=== PATIENT | male | born 2000 | race African-American/Black ===

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

== ENCOUNTER 2020-07-21 14:36 | Observation (INO) | payer OTHER, BC ==
[2020-07-21] MEDS ORDERED: DIPH,PERTUS(ACELL)TETVAC-LF 0.5 ML VIAL IM ONE (15:00)
[2020-07-21] MEDS ORDERED: HYDROmorphone 0.5 MG/0.5 ML SYRINGE IM STA (15:00)
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
[2020-07-21] MEDS ORDERED: HYDROmorphone 0.5 MG/0.5 ML SYRINGE IVP STA (15:56)
[2020-07-21] MEDS ORDERED: NALOXONE 0.4 MG/ML 1 ML VIAL IV PRN ×2 (16:19→23:13)
[2020-07-21 16:23] LABS: Basophils % (A) 0 %; Eosinophils # (A) 0.1 k/uL (0-0.7); Eosinophils % (A) 1 %; HCT 39.8 % (39.0-53.0); HGB 13.4 gm/dL (13.0-17.5); Lymphocytes # (A) 0.8 k/uL (1.0-4.8); Lymphocytes % (A) 5 %; MCH 29.9 pg (25.0-35.0); MCHC 33.7 g/dL (31.0-37.0); MCV 88.9 fL (80.0-100.0); Mean Platelet Volume 7.7; Monocytes # (A) 0.8 k/uL (0-1.0); Monocytes % (A) 5 %; Neutrophils # (A) 14.1 k/uL (1.3-7.7); Neutrophils % (A) 89 %; Platelet Count 224 k/uL (150-450); RBC 4.48 m/uL (4.30-5.90); WBC 15.9 k/uL (4.0-11.0)
[2020-07-21 16:36] LABS: ALT 14 U/L (4-49); AST 27 U/L (17-59); African American GFR (CKD) >90 (>60 ml/min/1.73 sqM); Albumin 4.9 g/dL (3.5-5.0); Alkaline Phosphatase 54 U/L (38-126); Anion Gap 10 mmol/L; Blood Urea Nitrogen 14 mg/dL (9-20); Calcium 9.5 mg/dL (8.4-10.2); Carbon Dioxide 20 mmol/L (22-30); Chloride 107 mmol/L (98-107); Glucose 96 mg/dL (74-99); Non-African American GFR(CKD) >90 (>60 ml/min/1.73 sqM); Potassium 3.8 mmol/L (3.5-5.1); Sodium 137 mmol/L (137-145); Total Protein 7.3 g/dL (6.3-8.2)
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
[2020-07-21] MEDS ORDERED: HYDROmorphone 0.5 MG/0.5 ML SYRINGE IVP PRN (19:13)
[2020-07-21] MEDS ORDERED: ONDANSETRON 4 MG/2 ML VIAL IVP PRN (19:14)
[2020-07-21] MEDS ORDERED: SUCCINYLCHOLINE CHLORIDE 100 MG/5 ML SYR IV ONE (20:58)
[2020-07-21] MEDS ORDERED: LIDOCAINE 1% INJ 10MG/ML (20 ML MDV) ONE (20:58)
[2020-07-21] MEDS ORDERED: ROCURONIUM BROMIDE 10 MG/ML 5 ML VIAL IV ONE (20:58)
[2020-07-21] MEDS ORDERED: fentaNYL (PF) 50 MCG/ML 2 ML AMP ONE (20:58)
[2020-07-21] MEDS ORDERED: PROPOFOL 10 MG/ML 20 ML VIAL IV ONE (20:58)
[2020-07-21] MEDS ORDERED: MIDAZOLAM 2 MG/2 ML VIAL ONE (20:58)
[2020-07-21] MEDS ORDERED: ONDANSETRON 4 MG/2 ML VIAL ONE (20:58)
[2020-07-21] MEDS ORDERED: ceFAZolin 1,000 MG VIAL ONE (20:58)
[2020-07-21] MEDS ORDERED: IV FLUID CONTINUATION 1,000 ML IV ONE (21:01)
[2020-07-21] MEDS ORDERED: SODIUM CHLORIDE 0.9% 50 ML with ceFAZolin 2,000 MG IV ONE ×2 (21:12)
[2020-07-21] MEDS ORDERED: LIDOCAINE 1%-EPI 1:100,000 20 ML VIAL SQ ONE (22:20)
[2020-07-21] MEDS ORDERED: LACTATED RINGERS 1,000 ML IV ONE (22:31)
[2020-07-21] MEDS ORDERED: NEOMYCIN-BACITRACIN-POLY OINT 1 APPLIC/EACH PACKET TOPICAL ONE (22:41)
[2020-07-21] MEDS ORDERED: MEPERIDINE 50 MG/ML SYRINGE IVP ONE (22:55)
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
[2020-07-21] MEDS ORDERED: HYDROcodone/APAP 5-325MG 1 EACH TAB PO PRN (23:19)
[2020-07-22] MEDS: HYDROcodone/APAP 5-325MG 1 EACH TAB PO PRN ×4 (02:58→14:32)
[2020-07-22] MEDS: HYDROmorphone 0.5 MG/0.5 ML SYRINGE IVP PRN ×2 (03:12→09:45)
[2020-07-22 07:35] VITALS: RESP 16
--- NOTE | 2020-07-22 09:03 | XR ---
EXAMINATION TYPE: XR hand complete LT DATE OF EXAM: 07/22/2020 CLINICAL HISTORY: Fracture status post splint application TECHNIQUE: Frontal, lateral and oblique images of the left hand are obtained. COMPARISON: 07/21/2010 left hand radiograph FINDINGS: Interval splinting of the left hand, with redemonstrated oblique spiral fracture of the fo urth metacarpal diaphysis with unchanged minimal displacement versus 07/21/2020 comparison. Overlying splinting material obscures fine osseous detail. IMPRESSION: Unchanged appearance of minimally displaced spiral fracture of the fourth metacarpal diap hysis status post splinting, versus 07/21/2020 comparison.
[2020-07-22 13:45] VITALS: BP 124/66; PULSE 66; TEMP 99
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
== END 2020-07-22 15:15 | disposition home or self-care (01) ==
LOC: EC 14:36 → 1SOBS 16:09
PROVIDERS: ADMIT Orthopaedic Surgery; ATTEND Orthopaedic Surgery
DX: S86.922A Laceration of unspecified muscle(s) and tendon(s) at lower leg level, left leg, initial encounter (principal); S62.325A Displaced fracture of shaft of fourth metacarpal bone, left hand, initial encounter for closed fracture; V29.9XXA Motorcycle rider (driver) (passenger) injured in unspecified traffic accident, initial encounter; R20.0 Anesthesia of skin; Z23 Encounter for immunization
CPT/HCPCS: 29125; 90471; 99285; 36415; 97162; 86900; 86901; 80053; 85025; 86850; 72170; 73130 ×2; 73590; 71045; 90715; 14020; G0378 ×2; J2250; J2175; J0690 ×3; J2405; J2001; J3010; J0330; J2704; J1170 ×2

== ENCOUNTER 2020-08-04 12:29 | Emergency (ER) | payer BC, OTHER ==
--- NOTE | 2020-08-04 14:15 | US ---
EXAMINATION TYPE: US venous doppler duplex LE LT DATE OF EXAM: 08/04/2020 1:53 PM COMPARISON: NONE CLINICAL HISTORY: r/o DVT, recent trauma. SIDE PERFORMED: Left TECHNIQUE: The lower extremity deep venous system is examined utilizing real time linear array sonog daniel with graded compression, doppler sonography and color-flow sonography. VESSELS IMAGED: External Iliac Vein (EIV) Common Femoral Vein Deep Femoral Vein Greater Saphenous Vein * Femoral Vein Popliteal Vein Small Saphenous Vein * Proximal Calf Veins (* superficial vessels) Left Leg: Negative for DVT IMPRESSION: Grayscale, color doppler, spectral doppler imaging performed of the deep veins of the lo wer extremities. There is normal flow, compressibility, vascular waveforms.
--- NOTE | 2020-08-04 14:29 | XR ---
EXAMINATION TYPE: XR hand complete LT DATE OF EXAM: 08/04/2020 COMPARISON: 07/22/2020 HISTORY: Pain TECHNIQUE: Three views are submitted. FINDINGS: Exam limited by overlying casting material obscuring bony detail. There is a comminuted oblique fract ure involving the fourth metacarpal with displacement which is similar in appearance relative to the prior exam. Remaining osseous structures intact. IMPRESSION: 1. Mildly displaced fracture fourth metacarpal unchanged from prior exam.
--- NOTE | 2020-08-04 14:53 | XR ---
EXAMINATION TYPE: XR tibia fibula LT DATE OF EXAM: 08/04/2020 COMPARISON: NONE HISTORY: Pain TECHNIQUE: Two views are submitted. FINDINGS: The osseous structures are intact. The joint spaces are preserved. IMPRESSION: 1. No acute osseous abnormality.
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
[2020-08-04] MEDS ORDERED: ACET/COD 300 MG/30 MG STARTER PACK 6 TAB BTL PO STA (15:02)
[2020-08-04 15:09] VITALS: BP 115/54; PULSE 88; RESP 16; TEMP 98
== END 2020-08-04 15:12 | disposition home or self-care (01) ==
LOC: EC 12:29
DX: G89.18 Other acute postprocedural pain (principal); S62.91XD Unspecified fracture of right hand, subsequent encounter for fracture with routine healing; Z98.890 Other specified postprocedural states; V89.2XXD Person injured in unspecified motor-vehicle accident, traffic, subsequent encounter
CPT/HCPCS: 99284

== ENCOUNTER 2020-12-31 14:49 | Emergency (ER) | payer BC ==
[2020-12-31 14:54] VITALS: RESP 18; TEMP 98.3
--- NOTE | 2020-12-31 15:10 | ED ---
General Adult HPI - General Chief complaint: Psychiatric Symptoms Stated complaint: Mental Health Time Seen by Provider: 12/31/20 14:58 Source: patient, RN notes reviewed, old records reviewed Mode of arrival: ambulatory Limitations: no limitations - History of Present Illness Initial comments: 20-year-old male presenting for psychiatric evaluation, suicidal ideation and depression. Patient is accompanied by his mother who states he's had some issues for the last 6 months or so. No suicide attempt. No specific plan. He's been stressed out and very anxious. He denies physical complaints, no past medical history. - Related Data Home Medications Medication Instructions Recorded Confirmed No Known Home Medications 12/31/20 12/31/20 Allergies Allergy/AdvReac Type Severity Reaction Status Date / Time No Known Allergies Allergy Verified 12/31/20 15:31 Review of Systems ROS Statement: Those systems with pertinent positive or pertinent negative responses have been documented in the HPI. ROS Other: All systems not noted in ROS Statement are negative. Past Medical History Past Medical History: No Reported History History of Any Multi-Drug Resistant Organisms: None Reported Past Surgical History: Orthopedic Surgery Additional Past Surgical History / Comment(s): Recent ortho surgery at [facility] on left leg. Additional Past Anesthesia/Blood Transfusion Reaction / Comment(s): brother has post-op nausea vomiting Past Psychological History: No Psychological Hx Reported Smoking Status: Never smoker Past Alcohol Use History: None Reported Past Drug Use History: Marijuana General Exam Limitations: no limitations General appearance: alert, in no apparent distress Head exam: Present: atraumatic, normocephalic Eye exam: Present: normal appearance, PERRL ENT exam: Present: normal exam Neck exam: Present: normal inspection. Absent: tenderness, meningismus Respiratory exam: Present: normal lung sounds bilaterally. Absent: respiratory distress, wheezes Cardiovascular Exam: Present: regular rate, normal rhythm GI/Abdominal exam: Present: soft. Absent: distended, tenderness, guarding Extremities exam: Present: normal inspection, normal capillary refill. Absent: pedal edema Neurological exam: Present: alert, oriented X3, CN II-XII intact. Absent: motor sensory deficit Psychiatric exam: Present: depressed, flat affect, suicidal ideation Skin exam: Present: warm, dry, intact. Absent: cyanosis, diaphoretic Course Vital Signs 12/31/20 14:50 Temperature 98.3 F Pulse Rate 64 Respiratory 18 Rate Blood Pressure 101/62 O2 Sat by Pulse 100 Oximetry - Reevaluation(s) Reevaluation #1: 12/31/20 15:10 Patient medically cleared for EPS evaluation Medical Decision Making - Medical Decision Making Patient had been evaluated by EPS, felt to be safe for discharge with outpatient referrals. I did reevaluate the patient is feeling much better. He is able to sign a safety plan and will arrange for outpatient follow-up. Mother is in the room and is agreeable with this plan. Disposition Clinical Impression: Depression Disposition: HOME SELF-CARE Condition: Fair Instructions (If sedation given, give patient instructions): Depression (ED) Additional Instructions: Please follow up with community mental health, please return with worsening or changing symptoms. Is patient prescribed a controlled substance at d/c from ED?: No Referrals: None,Stated [Primary Care Provider] - 1-2 days Artem Hogan MD [STAFF PHYSICIAN] - 1-2 days Time of Disposition: 17:14
[2020-12-31 17:19] VITALS: BP 122/86; PULSE 84
== END 2020-12-31 17:19 | disposition home or self-care (01) ==
LOC: EC 14:49
DX: F32.9 Major depressive disorder, single episode, unspecified (principal)
CPT/HCPCS: 82075; 99285

== ENCOUNTER 2021-01-16 22:36 | Emergency (ER) | payer BC ==
[2021-01-16 22:54] VITALS: BP 115/64; PULSE 84; TEMP 98.3
[2021-01-16] MEDS ORDERED: IBUPROFEN 600 MG TAB PO STA (23:39)
[2021-01-16] MEDS ORDERED: ACETAMINOPHEN TAB 325 MG TAB PO STA (23:39)
[2021-01-17 00:11] VITALS: RESP 16
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
[2021-01-17] MEDS ORDERED: AMOXIC-POT CLAV 875MG STARTER PACK 2 TAB BTL PO STA (00:52)
== END 2021-01-17 01:11 | disposition home or self-care (01) ==
LOC: EC 22:36
DX: S02.2XXA Fracture of nasal bones, initial encounter for closed fracture (principal); T74.11XA Adult physical abuse, confirmed, initial encounter; Y04.0XXA Assault by unarmed brawl or fight, initial encounter; Y92.009 Unspecified place in unspecified non-institutional (private) residence as the place of occurrence of the external cause; Y07.9 Unspecified perpetrator of maltreatment and neglect
CPT/HCPCS: 70486; 99284

== ENCOUNTER 2021-08-17 19:30 | Emergency (ER) | payer BC, OTHER ==
[2021-08-17 19:34] VITALS: BP 105/64; PULSE 89; RESP 18; TEMP 98.5
[2021-08-17] MEDS ORDERED: ACETAMINOPHEN TAB 325 MG TAB PO STA (20:02)
--- NOTE | 2021-08-17 20:11 | ED ---
Fall HPI - General Chief Complaint: Fall Stated Complaint: Fall-head injury Time Seen by Provider: 08/17/21 19:41 Source: patient Mode of arrival: ambulatory - History of Present Illness Initial Comments: 21-year-old male presents emergency Department with a chief complaint of a fall and head injury. Patient reports he fell down 4 stairs and injured his head on the way down. Patient reports he noticed some blood in the parietal region of the head. States there were no loss of consciousness blood thinners. However, he states there is pain in the injury region. He also reports some lightheadedness but denies any dizziness. Denies any nausea or vomiting visual changes onset of weakness or paresthesias. Tetanus is up-to-date. - Related Data Previous Rx's Medication Instructions Recorded Amoxic-Pot Clav 875-125Mg 1 tab PO Q12HR #14 tablet 01/17/21 [Augmentin 875-125] Ibuprofen [Motrin] 600 mg PO Q8HR PRN #30 tab 01/17/21 Allergies Allergy/AdvReac Type Severity Reaction Status Date / Time No Known Allergies Allergy Verified 08/17/21 19:34 Review of Systems ROS Statement: Those systems with pertinent positive or pertinent negative responses have been documented in the HPI. ROS Other: All systems not noted in ROS Statement are negative. Past Medical History Past Medical History: No Reported History History of Any Multi-Drug Resistant Organisms: None Reported Past Surgical History: Orthopedic Surgery Additional Past Surgical History / Comment(s): Recent ortho surgery at [facility] on left leg. Additional Past Anesthesia/Blood Transfusion Reaction / Comment(s): brother has post-op nausea vomiting Past Psychological History: No Psychological Hx Reported Smoking Status: Never smoker Past Alcohol Use History: None Reported Past Drug Use History: Marijuana General Exam Limitations: no limitations General appearance: alert, in no apparent distress Head exam: Present: atraumatic, normocephalic. Absent: normal inspection (Small laceration, superficial on the parietal region of the head), other (Negative Alva sign, raccoon eyes, hemotympanum.) Eye exam: Present: normal appearance, PERRL, EOMI Pupils: Present: normal accommodation ENT exam: Present: normal exam, normal oropharynx, mucous membranes moist Neck exam: Present: normal inspection, full ROM. Absent: tenderness Respiratory exam: Present: normal lung sounds bilaterally. Absent: respiratory distress, wheezes, rales, rhonchi, stridor Cardiovascular Exam: Present: regular rate, normal rhythm, normal heart sounds. Absent: systolic murmur GI/Abdominal exam: Present: soft. Absent: rebound Extremities exam: Present: normal inspection, full ROM, normal capillary refill, other (Palpable DP and PT bilaterally) Back exam: Present: normal inspection, full ROM. Absent: tenderness Neurological exam: Present: alert, oriented X3, CN II-XII intact, normal gait Psychiatric exam: Present: normal affect, normal mood Skin exam: Present: warm, dry, intact, normal color Course Vital Signs 08/17/21 19:31 Temperature 98.5 F Pulse Rate 89 Respiratory 18 Rate Blood Pressure 105/64 O2 Sat by Pulse 98 Oximetry Medical Decision Making - Medical Decision Making 21-year-old male presents emergency Department with a chief complaint of a fall and head injury. On physical examination, small laceration that was thoroughly irrigated and repaired with one staple. Patient had a procedure well. Patient was given analgesia for the head injury. CT of the brain and C-spine is unremarkable. Patient advised to return for suture removal in 10 days. Strict return parameters were thoroughly discussed with patient is understanding and agreeable. Disposition Clinical Impression: Fall, Hand laceration, Head injury, Concussion Disposition: HOME SELF-CARE Condition: Stable Instructions (If sedation given, give patient instructions): Laceration (DC), Staple Care (ED) Additional Instructions: Please return to the emergency room in 10-14 days to have sstaples removed. Please watch for any signs of infection which may include increased pain, swelling, redness, fever or chills. Please return to emergency room for any signs of infection do occur. Please use clean soap and water over the area to prevent scabbing over your stitches. Please leave wound covered for the first 24-48 hours and then leave wound open to air. Please return to the emergency room for any other concerns. Is patient prescribed a controlled substance at d/c from ED?: No Referrals: None,Stated [Primary Care Provider] - 1-2 days Time of Disposition: 21:13
--- NOTE | 2021-08-17 21:00 | CT ---
EXAMINATION TYPE: CT brain behzad jacobsen DATE OF EXAM: 08/17/2021 COMPARISON: None HISTORY: fell down stairs today CT DLP: 1393.6 mGycm Automated exposure control for dose reduction was used. TECHNIQUE: CT scan of the head and cervical spine are performed without contrast. FINDINGS: There is no acute intracranial hemorrhage, mass effect, or midline shift identified. The ventricles and sulci are within normal limits in size. The globes are intact and the visualized sin uses are clear. Mucosal thickening of the floor of the left maxillary sinus. Cervical spine is visualized in its entirety from C1 through upper thoracic levels and demonstrates s atisfactory alignment without evidence of acute fracture or dislocation. Prevertebral soft tissue ap pears within normal limits. The C1-C2 articulation is unremarkable. IMPRESSION: 1. There is no acute fracture or dislocation evident in the cervical spine. 2. No acute intracranial hemorrhage, mass effect, or midline shift is seen.
[2021-08-17] MEDS ORDERED: IBUPROFEN 600 MG TAB PO STA (21:09)
== END 2021-08-17 21:24 | disposition home or self-care (01) ==
LOC: EC 19:30
DX: S06.0X0A Concussion without loss of consciousness, initial encounter (principal); S01.91XA Laceration without foreign body of unspecified part of head, initial encounter; W10.8XXA Fall (on) (from) other stairs and steps, initial encounter
CPT/HCPCS: 12001; 70450; 72125; 99284

== ENCOUNTER 2021-08-31 11:17 | Emergency (ER) | payer BC, OTHER ==
[2021-08-31] MEDS ORDERED: ONDANSETRON 4 MG/2 ML VIAL IVP STA (11:45)
[2021-08-31] MEDS ORDERED: SODIUM CHLORIDE 0.9% 1,000 ML IV STA (11:45)
[2021-08-31 12:07] LABS: Basophils % (A) 1 %; Eosinophils % (A) 1 %; HCT 42.8 % (39.0-53.0); HGB 14.5 gm/dL (13.0-17.5); Lymphocytes % (A) 31 %; MCH 30.8 pg (25.0-35.0); MCHC 33.9 g/dL (31.0-37.0); Monocytes # (A) 0.2 k/uL (0-1.0); Monocytes % (A) 7 %; Neutrophils # (A) 1.9 k/uL (1.3-7.7); Neutrophils % (A) 59 %; Platelet Count 165 k/uL (150-450); RBC 4.71 m/uL (4.30-5.90); RDW 11.9 % (11.5-15.5); WBC 3.2 k/uL (3.8-10.6)
[2021-08-31 12:18] LABS: ALT 19 U/L (4-49); AST 25 U/L (17-59); African American GFR (CKD) >90 (>60 ml/min/1.73 sqM); Albumin 4.9 g/dL (3.5-5.0); Alkaline Phosphatase 60 U/L (38-126); Anion Gap 10 mmol/L; Blood Urea Nitrogen 14 mg/dL (9-20); Calcium 9.6 mg/dL (8.4-10.2); Carbon Dioxide 28 mmol/L (22-30); Chloride 104 mmol/L (98-107); Glucose 113 mg/dL (74-99); Non-African American GFR(CKD) >90 (>60 ml/min/1.73 sqM); Potassium 3.7 mmol/L (3.5-5.1); Sodium 142 mmol/L (137-145); Total Bilirubin 0.6 mg/dL (0.2-1.3); Total Protein 7.8 g/dL (6.3-8.2)
--- NOTE | 2021-08-31 12:35 | ED ---
Nausea/Vomiting/Diarrhea HPI - General Chief complaint: Nausea/Vomiting/Diarrhea Stated complaint: nausea/vomithing/dehydrated Time Seen by Provider: 08/31/21 11:39 Source: patient, RN notes reviewed Mode of arrival: ambulatory Limitations: no limitations - History of Present Illness Initial comments: Patient is a 21-year-old male presenting to emergency Department with complaints of nausea, vomiting, abdominal cramping over the past 3-4 days. He also started having body aches, chills, mild cough about a week ago. His girlfriend recently tested positive for covid and he is concerned he has the same. States he went to [facility] earlier today, he sat there for hours without any treatment or testing. Patient then left and came here. He states he continues to feel nauseous, is not able to eat or drink anything in the past 2-3 days. Denies any lightheadedness or dizziness, mild fevers a few days ago but none today. He did not take any Tylenol or Motrin at today. Denies history of asthma, is a nonsmoker. He has no further complaints at this time. Patient vitals are stable upon arrival. - Related Data Home Medications Medication Instructions Recorded Confirmed No Known Home Medications 08/31/21 08/31/21 Allergies Allergy/AdvReac Type Severity Reaction Status Date / Time No Known Allergies Allergy Verified 08/31/21 12:18 Review of Systems ROS Statement: Those systems with pertinent positive or pertinent negative responses have been documented in the HPI. ROS Other: All systems not noted in ROS Statement are negative. Past Medical History Past Medical History: No Reported History History of Any Multi-Drug Resistant Organisms: None Reported Past Surgical History: Orthopedic Surgery Additional Past Surgical History / Comment(s): Recent ortho surgery at [facility] on left leg. Additional Past Anesthesia/Blood Transfusion Reaction / Comment(s): brother has post-op nausea vomiting Past Psychological History: No Psychological Hx Reported Smoking Status: Never smoker Past Alcohol Use History: None Reported Past Drug Use History: Marijuana General Exam - General Exam Comments Initial Comments: GENERAL: Patient is well-developed and well-nourished. Patient is nontoxic and in no acute distress. HEAD: Atraumatic, normocephalic. EYES: Pupils equal round and reactive to light, extraocular movements intact, sclera anicteric, conjunctiva are normal. Eyelids were unremarkable. ENT: TMs normal, nares patent, oropharynx clear without exudates. Dry mucous membranes. NECK: Normal range of motion, supple without lymphadenopathy or JVD. LUNGS: Unlabored respirations. Breath sounds clear to auscultation bilaterally and equal. No wheezes rales or rhonchi. HEART: Regular rate and rhythm without murmurs, rubs or gallops. ABDOMEN: Soft, nontender, normoactive bowel sounds. No guarding, no rebound. No masses appreciated. : Deferred MUSCULOSKELETAL: Normal extremities with adequate strength and normal range of motion, no pitting or edema. No clubbing or cyanosis. NEUROLOGICAL: Patient is alert and oriented x 3. SKIN: Warm, Dry, normal turgor, no rashes or lesions noted. Limitations: no limitations Course Vital Signs 08/31/21 08/31/21 11:30 13:37 Temperature 98.5 F 98.2 F Pulse Rate 83 Respiratory 19 Rate Blood Pressure 108/76 O2 Sat by Pulse 97 Oximetry Medical Decision Making - Medical Decision Making Patient is a 21-year-old male here for nausea, vomiting, abdominal cramping and body aches that started about 5 days ago. Symptoms worsened over the past couple days. His girlfriend tested positive for covid, his test is also positive today. His labs are unremarkable. He does meet for monoclonal antibodies, does agree to this. [facility]. He is stable for discharge. Recommended Tylenol or Motrin for any fevers or body aches. He is agreeable to this. Return parameters were discussed with him and he verbalized understanding. - Lab Data Result diagrams: 08/31/21 11:57 08/31/21 11:57 Lab Results 08/31/21 08/31/21 08/31/21 Range/Units 11:57 11:57 11:57 WBC 3.2 L (3.8-10.6) k/uL RBC 4.71 (4.30-5.90) m/uL Hgb 14.5 (13.0-17.5) gm/dL Hct 42.8 (39.0-53.0) % MCV 91.0 (80.0-100.0) fL MCH 30.8 (25.0-35.0) pg MCHC 33.9 (31.0-37.0) g/dL RDW 11.9 (11.5-15.5) % Plt Count 165 (150-450) k/uL MPV 8.0 Neutrophils % 59 % Lymphocytes % 31 % Monocytes % 7 % Eosinophils % 1 % Basophils % 1 % Neutrophils # 1.9 (1.3-7.7) k/uL Lymphocytes # 1.0 (1.0-4.8) k/uL Monocytes # 0.2 (0-1.0) k/uL Eosinophils # 0.0 (0-0.7) k/uL Basophils # 0.0 (0-0.2) k/uL Sodium 142 (137-145) mmol/L Potassium 3.7 (3.5-5.1) mmol/L Chloride 104 (98-107) mmol/L Carbon Dioxide 28 (22-30) mmol/L Anion Gap 10 mmol/L BUN 14 (9-20) mg/dL Creatinine 0.85 (0.66-1.25) mg/dL Est GFR (CKD-EPI)AfAm >90 (>60 ml/min/1.73 sqM) Est GFR (CKD-EPI)NonAf >90 (>60 ml/min/1.73 sqM) Glucose 113 H (74-99) mg/dL Calcium 9.6 (8.4-10.2) mg/dL Total Bilirubin 0.6 (0.2-1.3) mg/dL AST 25 (17-59) U/L ALT 19 (4-49) U/L Alkaline Phosphatase 60 (38-126) U/L Total Protein 7.8 (6.3-8.2) g/dL Albumin 4.9 (3.5-5.0) g/dL Coronavirus (PCR) Detected A (Not Detectd) Disposition Clinical Impression: COVID-19, Nausea & vomiting Disposition: HOME SELF-CARE Condition: Stable Instructions (If sedation given, give patient instructions): Coronavirus Disease 2019 (COVID-19) Additional Instructions: Please return to the Emergency Department if symptoms worsen or any other concerns. May take Zofran every 8 hours for any additional nausea or vomiting. Continue to increased your fluid intake. Is patient prescribed a controlled substance at d/c from ED?: No Referrals: None,Stated [Primary Care Provider] - 1-2 days Time of Disposition: 13:57
[2021-08-31] MEDS ORDERED: SODIUM CHLORIDE 0.9% 50 ML IVPB ONE (12:45)
[2021-08-31] MEDS ORDERED: CASIRIVIMAB/IMDEVIMAB (EUA) 1,200 MG in SODIUM CHLORIDE 0.9% 100 ML IVPB ONE (13:00)
[2021-08-31 13:39] VITALS: TEMP 98.2
[2021-08-31] MEDS ORDERED: ONDANSETRON 4 MG ODT STARTER PACK 2 TAB BTL PO STA (13:55)
[2021-08-31 14:33] VITALS: BP 102/64; PULSE 62; RESP 20
== END 2021-08-31 14:33 | disposition home or self-care (01) ==
LOC: EC 11:17
DX: U07.1 COVID-19 (principal); R10.9 Unspecified abdominal pain
CPT/HCPCS: 36415; 80053; 85025; 87635; 99284; 96365; 96375; 96361; J2405; S0119; Q0243

== ENCOUNTER 2023-05-31 23:07 | Emergency (ER) | payer BC, OTHER ==
[2023-05-31 23:13] VITALS: BP 121/64; PULSE 99; RESP 16; TEMP 98.1
[2023-05-31] MEDS ORDERED: DOXYCYCLINE 100 MG CAP PO STA (23:26)
--- NOTE | 2023-05-31 23:27 | ED ---
General Adult HPI - General Chief complaint: Animal Bite Stated complaint: bug bite Time Seen by Provider: 05/31/23 23:16 Source: patient Mode of arrival: ambulatory Limitations: no limitations - History of Present Illness Initial comments: 23-year-old male presenting for evaluation of tick bite. Patient states that he found a tick on the left side of his abdomen this evening. Patient assumes it has been there for less than 24 hours as he did not see it there when showering yesterday. He removed it prior to arrival but is concerned that they had still remains in the skin. He is otherwise asymptomatic. - Related Data Home Medications Medication Instructions Recorded Confirmed No Known Home Medications 08/31/21 08/31/21 Allergies Allergy/AdvReac Type Severity Reaction Status Date / Time No Known Allergies Allergy Verified 08/31/21 12:18 Review of Systems ROS Statement: Those systems with pertinent positive or pertinent negative responses have been documented in the HPI. ROS Other: All systems not noted in ROS Statement are negative. Past Medical History Past Medical History: No Reported History History of Any Multi-Drug Resistant Organisms: None Reported Past Surgical History: Orthopedic Surgery Additional Past Surgical History / Comment(s): Recent ortho surgery at [facility] on left leg. Additional Past Anesthesia/Blood Transfusion Reaction / Comment(s): brother has post-op nausea vomiting Past Psychological History: No Psychological Hx Reported Smoking Status: Never smoker Past Alcohol Use History: None Reported Past Drug Use History: Marijuana General Exam Limitations: no limitations General appearance: alert, in no apparent distress Head exam: Present: atraumatic, normocephalic, normal inspection Eye exam: Present: normal appearance Neck exam: Present: normal inspection Extremities exam: Present: normal inspection, full ROM Neurological exam: Present: alert, oriented X3, CN II-XII intact Psychiatric exam: Present: normal affect, normal mood Skin exam: Present: warm, dry, intact, normal color. Absent: rash Course Vital Signs 05/31/23 23:10 Temperature 98.1 F Pulse Rate 99 Respiratory 16 Rate Blood Pressure 121/64 O2 Sat by Pulse 98 Oximetry Medical Decision Making - Medical Decision Making Was pt. sent in by a medical professional or institution (, PA, [employer], urgent care, hospital, or shelter...) When possible be specific @ -No Did you speak to anyone other than the patient for history (EMS, parent, family, police, friend...)? What history was obtained from this source @ -No Did you review nursing and triage notes (agree or disagree)? Why? @ -I reviewed and agree with nursing and triage notes Were old charts reviewed (outside hosp., previous admission, EMS record, old EKG, old radiological studies, urgent care reports/EKG's, shelter records)? Report findings @ -No old charts were reviewed Differential Diagnosis (chest pain, altered mental status, abdominal pain women, abdominal pain men, vaginal bleeding, weakness, fever, dyspnea, syncope, headache, dizziness, GI bleed, back pain, seizure, CVA, palpatations, mental health, musculoskeletal)? @ -Differential includes tick bite, cellulitis, abscess, cyst, not an all inclusive list EKG interpreted by me (3pts min.). @ -As above X-rays interpreted by me (1pt min.). @ -None done CT interpreted by me (1pt min.). @ -None done U/S interpreted by me (1pt. min.). @ -None done What testing was considered but not performed or refused? (CT, X-rays, U/S, labs)? Why? @ -None What meds were considered but not given or refused? Why? @ -None Did you discuss the management of the patient with other professionals (professionals i.e. , PA, [employer] BUILDER, lab, RT, psych nurse, clinical social work therapist, contract clerk automobile, teacher, training officer, piano case maker)? Give summary @ -No Was smoking cessation discussed for >3mins.? @ -No Was critical care preformed (if so, how long)? @ -No Were there social determinants of health that impacted care today? How? (Homelessness, low income, unemployed, alcoholism, drug addiction, transportation, low edu. Level, literacy, decrease access to med. care, assisted, rehab)? @ -No Was there de-escalation of care discussed even if they declined (Discuss DNR or withdrawal of care, Hospice)? DNR status @ -No What co-morbidities impacted this encounter? (DM, HTN, Smoking, COPD, CAD, Cancer, CVA, ARF, Chemo, Hep., AIDS, mental health diagnosis, sleep apnea, morbid obesity)? @ -None Was patient admitted / discharged? Hospital course, mention meds given and route, prescriptions, significant lab abnormalities, going to OR and other pertinent info. @ -23-year-old male presenting with tick bite that occurred today. Patient assumes that the tick has been there for less than 24 hours. Tick removed prior to arrival, he is worried head is still stuck within the skin. On examination I see no evidence of tick Remaining. Patient is given one time dose of doxycycline here in the ER and educated on signs of Lyme disease. Follow-up with PCP. Report back to ER with any new or worsening symptoms. Discussed return parameters and answered all questions. Patient conveyed verbal understanding and agreed to the plan. I discussed this case in detail with my attending Dr. New Undiagnosed new problem with uncertain prognosis? @ -No Drug Therapy requiring intensive monitoring for toxicity (Heparin, Nitro, Insulin, Cardizem)? @ -No Were any procedures done? @ -No Diagnosis/symptom? @ -Tick bite Acute, or Chronic, or Acute on Chronic? @ -Acute Uncomplicated (without systemic symptoms) or Complicated (systemic symptoms)? @ -Uncomplicated Side effects of treatment? @ -No Exacerbation, Progression, or Severe Exacerbation? @ -No Poses a threat to life or bodily function? How? (Chest pain, USA, ID, pneumonia, PE, COPD, DKA, ARF, appy, cholecystitis, CVA, Diverticulitis, Homicidal, Suicidal, threat to staff... and all critical care pts) @ -No Disposition Clinical Impression: Tick bite Disposition: HOME SELF-CARE Condition: Good Instructions (If sedation given, give patient instructions): Lyme Disease (ED), Tick Bite (ED) Additional Instructions: Follow-up with PCP. Report back to ER for any new or worsening symptoms. Is patient prescribed a controlled substance at d/c from ED?: No Referrals: Haleigh Antonio MD [Primary Care Provider] - 1-2 days Time of Disposition: 23:27
== END 2023-05-31 23:38 | disposition home or self-care (01) ==
LOC: EC 23:07
DX: R23.8 Other skin changes (principal); F12.90 Cannabis use, unspecified, uncomplicated; W57.XXXA Bitten or stung by nonvenomous insect and other nonvenomous arthropods, initial encounter
CPT/HCPCS: 99283

== ENCOUNTER 2024-11-14 16:56 | Emergency (ER) | payer OTHER ==
--- NOTE | 2024-11-14 17:32 | ED ---
ENT HPI - General Chief complaint: Dental/Oral Stated complaint: mouth abscess Time Seen by Provider: 11/14/24 17:13 Source: patient, RN notes reviewed Mode of arrival: ambulatory Limitations: no limitations - History of Present Illness Initial comments: This is a 24-year-old male with no significant medical history presenting to the emergency department chief complaint of a right superior dental abscess. Patient states that he was evaluated by his dentist on 11/12/2024 where he was prescribed Augmentin and has a follow-up appointment scheduled in December. States that there was no intervention performed of the abscesses this area was markedly inflamed. He states that prior to arrival he noticed that the abscess began to drain which corresponded with immediate relief of his pain. States that he has been taking the Augmentin as prescribed. He denies fevers, chills, nausea, vomiting, difficulty breathing or swallowing. states facial swelling has improved after initiation of antibiotics. No other acute complaints at this time. - Related Data Home Medications Medication Instructions Recorded Confirmed No Known Home Medications 08/31/21 08/31/21 Allergies Allergy/AdvReac Type Severity Reaction Status Date / Time No Known Allergies Allergy Verified 11/14/24 17:07 Review of Systems ROS Statement: Those systems with pertinent positive or pertinent negative responses have been documented in the HPI. ROS Other: All systems not noted in ROS Statement are negative. Past Medical History Past Medical History: No Reported History History of Any Multi-Drug Resistant Organisms: None Reported Past Surgical History: Orthopedic Surgery Additional Past Surgical History / Comment(s): Recent ortho surgery at [facility] on left leg. Additional Past Anesthesia/Blood Transfusion Reaction / Comment(s): brother has post-op nausea vomiting Past Psychological History: No Psychological Hx Reported Smoking Status: Never smoker Past Alcohol Use History: None Reported Past Drug Use History: Marijuana General Exam Limitations: no limitations General appearance: alert, in no apparent distress Expanded Teeth exam: Present: other (right superior dental abscess with active drainage of purulent material) Neck exam: Present: normal inspection. Absent: tenderness, meningismus, lymphadenopathy Respiratory exam: Present: normal lung sounds bilaterally. Absent: respiratory distress, wheezes, rales, rhonchi, stridor Cardiovascular Exam: Present: regular rate, normal rhythm, normal heart sounds. Absent: systolic murmur, diastolic murmur, rubs, gallop, clicks GI/Abdominal exam: Present: soft, normal bowel sounds. Absent: distended, tenderness, guarding, rebound, rigid Extremities exam: Present: normal inspection, full ROM, normal capillary refill. Absent: tenderness, pedal edema, joint swelling, calf tenderness Course Vital Signs 11/14/24 11/14/24 17:08 17:43 Temperature 98.9 F 98.6 F Pulse Rate 75 76 Respiratory 20 18 Rate Blood Pressure 98/62 101/70 O2 Sat by Pulse 100 99 Oximetry Medical Decision Making - Medical Decision Making Was pt. sent in by a medical professional or institution (, YOUNG, WOOD CRAFTSMAN, urgent care, hospital, or [place] health care facility...) When possible be specific @ -No Did you speak to anyone other than the patient for history (EMS, parent, family, police, friend...)? What history was obtained from this source @ -No Did you review nursing and triage notes (agree or disagree)? Why? @ -I reviewed and agree with nursing and triage notes Were old charts reviewed (outside hosp., previous admission, EMS record, old EKG, old radiological studies, urgent care reports/EKG's, [place] health [place] facility records)? Report findings @ -No old charts were reviewed Differential Diagnosis (chest pain, altered mental status, abdominal pain women, abdominal pain men, vaginal bleeding, weakness, fever, dyspnea, syncope, headache, dizziness, GI bleed, back pain, seizure, CVA, palpatations, mental health, musculoskeletal)? @ -Dental abscess, dental caries, dental pain, this list is not all inclusive EKG interpreted by me (3pts min.). @ -None X-rays interpreted by me (1pt min.). @ -None done CT interpreted by me (1pt min.). @ -None done U/S interpreted by me (1pt. min.). @ -None done What testing was considered but not performed or refused? (CT, X-rays, U/S, labs)? Why? @ -None What meds were considered but not given or refused? Why? @ -None Did you discuss the management of the patient with other professionals (professionals i.e. YOUNG Tubbs, WOOD CRAFTSMAN, lab, RT, psych nurse, social service manager, mouse breeder, teacher, staff combat information center officer, foster care case manager)? Give summary @ -No Was smoking cessation discussed for >3mins.? @ -No Was critical care preformed (if so, how long)? @ -No Were there social determinants of health that impacted care today? How? (Homelessness, low income, unemployed, alcoholism, drug addiction, transp ortation, low edu. Level, literacy, decrease access to med. care, usp, rehab)? @ -No Was there de-escalation of care discussed even if they declined (Discuss DNR or withdrawal of care, Hospice)? DNR status @ -No What co-morbidities impacted this encounter? (DM, HTN, Smoking, COPD, CAD, Cancer, CVA, ARF, Chemo, Hep., AIDS, mental health diagnosis, sleep apnea, morbid obesity)? @ -None Was patient admitted / discharged? Hospital course, mention meds given and route, prescriptions, significant lab abnormalities, going to OR and other pertinent info. @ -Discharge. 24-year-old male presenting with dental abscess. On evaluation patient noted to have actively draining dental abscess of the right superior posterior molar. Patient's vitals are stable. He is not exhibiting signs of systemic infection. Patient has been taking Augmentin as prescribed from dentist. At this time no further intervention is required. Recommended that patient continue tylenol and Motrin as needed for pain addition to rinses and completing Augmentin. Return parameters as the patient such as development of severe facial swelling, fevers, chills, nausea, vomiting, difficulty breathing or swallowing report back to the emergency department. Discussed with Dr. Pina Undiagnosed new problem with uncertain prognosis? @ -No Drug Therapy requiring intensive monitoring for toxicity (Heparin, Nitro, Insulin, Cardizem)? @ -No Were any procedures done? @ -No Diagnosis/symptom? @ -dental abscess Acute, or Chronic, or Acute on Chronic? @ -acute Uncomplicated (without systemic symptoms) or Complicated (systemic symptoms)? @ -uncomplicated Side effects of treatment? @ -No Exacerbation, Progression, or Severe Exacerbation? @ -No Poses a threat to life or bodily function? How? (Chest pain, USA, PA, pneumonia, PE, COPD, DKA, ARF, appy, cholecystitis, CVA, Diverticulitis, Homicidal, Suicidal, threat to staff... and all critical care pts) @ -No Disposition Clinical Impression: Dental abscess Disposition: HOME SELF-CARE Condition: Good Instructions (If sedation given, give patient instructions): Dental Abscess (ED) Additional Instructions: Please return to the Emergency Department if symptoms worsen or any other concerns. Continue prescribed Augmentin. Take Tylenol Motrin as needed for pain relief. Use warm rinses. Follow-up as scheduled with dentist. Is patient prescribed a controlled substance at d/c from ED?: No Referrals: None,Stated [Primary Care Provider] - 1-2 days Time of Disposition: 17:32
[2024-11-14 17:57] VITALS: BP 101/70; PULSE 76; RESP 18; TEMP 98.6
== END 2024-11-14 17:44 | disposition home or self-care (01) ==
LOC: EC 16:56
DX: K04.7 Periapical abscess without sinus (principal)
CPT/HCPCS: 99282

== ENCOUNTER 2025-03-11 05:54 | Emergency (ER) | payer OTHER ==
[2025-03-11 06:04] VITALS: RESP 18
--- NOTE | 2025-03-11 06:15 | ED ---
General Adult HPI - General Chief complaint: Upper Respiratory Infection Stated complaint: nausea; consitpation, Time Seen by Provider: 03/11/25 06:07 Source: patient, RN notes reviewed Mode of arrival: ambulatory Limitations: no limitations - History of Present Illness Initial comments: This is a 25-year-old male with no reported medical conditions presents emergency department with flulike symptoms since Saturday. Patient states that he has been experiencing intermittent body aches, headaches, dry cough, congestion and fevers. Patient states that multiple people at his work have been exhibiting similar symptoms. He endorses decrease in appetite. Denies nausea, vomiting, diarrhea. - Related Data Previous Rx's Medication Instructions Recorded Ibuprofen [Motrin] 800 mg PO Q6HR #30 tab 03/11/25 Allergies Allergy/AdvReac Type Severity Reaction Status Date / Time No Known Allergies Allergy Verified 03/11/25 06:04 Review of Systems ROS Statement: Those systems with pertinent positive or pertinent negative responses have been documented in the HPI. ROS Other: All systems not noted in ROS Statement are negative. Past Medical History Past Medical History: No Reported History History of Any Multi-Drug Resistant Organisms: None Reported Past Surgical History: Orthopedic Surgery Additional Past Surgical History / Comment(s): Recent ortho surgery at [facility] on left leg. Additional Past Anesthesia/Blood Transfusion Reaction / Comment(s): brother has post-op nausea vomiting Past Psychological History: No Psychological Hx Reported Smoking Status: Never smoker Past Alcohol Use History: None Reported Past Drug Use History: Marijuana General Exam Limitations: no limitations General appearance: alert, in no apparent distress Eye exam: Present: normal appearance, PERRL, EOMI. Absent: scleral icterus, conjunctival injection, periorbital swelling ENT exam: Present: normal exam, mucous membranes moist Respiratory exam: Present: normal lung sounds bilaterally. Absent: respiratory distress, wheezes, rales, rhonchi, stridor Cardiovascular Exam: Present: regular rate, normal rhythm, normal heart sounds. Absent: systolic murmur, diastolic murmur, rubs, gallop, clicks GI/Abdominal exam: Present: soft, normal bowel sounds. Absent: distended, tenderness, guarding, rebound, rigid Extremities exam: Present: normal inspection, full ROM, normal capillary refill. Absent: tenderness, pedal edema, joint swelling, calf tenderness Back exam: Present: normal inspection Course Vital Signs 03/11/25 06:01 Temperature 97.9 F Pulse Rate 71 Respiratory 18 Rate Blood Pressure 111/71 O2 Sat by Pulse 98 Oximetry Medical Decision Making - Medical Decision Making Was pt. sent in by a medical professional or institution ([facility], CHIEF MEDICAL TECHNOLOGIST, urgent care, hospital, or fci...) When possible be specific @ -No Did you speak to anyone other than the patient for history (EMS, parent, family, police, friend...)? What history was obtained from this source @ -No Did you review nursing and triage notes (agree or disagree)? Why? @ -I reviewed and agree with nursing and triage notes Were old charts reviewed (outside hosp., previous admission, EMS record, old EKG, old radiological studies, urgent care reports/EKG's, fci records)? Report findings @ -No old charts were reviewed Differential Diagnosis (chest pain, altered mental status, abdominal pain women, abdominal pain men, vaginal bleeding, weakness, fever, dyspnea, syncope, headache, dizziness, GI bleed, back pain, seizure, CVA, palpatations, mental health, musculoskeletal)? @ -COVID 19, RSV, influenza, pneumonia, acute bronchitis, URI, this list is not all inclusive EKG interpreted by me (3pts min.). @ -none X-rays interpreted by me (1pt min.). @ -Chest x-ray no acute cardiopulmonary process or infiltrate CT interpreted by me (1pt min.). @ -None done U/S interpreted by me (1pt. min.). @ -None done What testing was considered but not performed or refused? (CT, X-rays, U/S, labs)? Why? @ -None What meds were considered but not given or refused? Why? @ -None Did you discuss the management of the patient with other professionals (professionals i.e. [facility], CHIEF MEDICAL TECHNOLOGIST, lab, RT, psych nurse, nursing home social worker, civil engineering drafter, teacher, landing signal officer, caser)? Give summary @ -No Was smoking cessation discussed for >3mins.? @ -No Was critical care preformed (if so, how long)? @ -No Were there social determinants of health that impacted care today? How? (Homelessness, low income, unemployed, alcoholism, drug addiction, transportation, low edu. Level, literacy, decrease access to med. care, halfway, rehab)? @ -No Was there de-escalation of care discussed even if they declined (Discuss DNR or withdrawal of care, Hospice)? DNR status @ -No What co-morbidities impacted this encounter? (DM, HTN, Smoking, COPD, CAD, Cancer, CVA, ARF, Chemo, Hep., AIDS, mental health diagnosis, sleep apnea, morbid obesity)? @ -None Was patient admitted / discharged? Hospital course, mention meds given and route, prescriptions, significant lab abnormalities, going to OR and other pertinent info. @ -Discharge. 25 year old male presenting with flulike symptoms over the past 20 days. On evaluation patient is stable no signs acute distress. Initial vitals are stable. Patient is tested positive for influenza B. Chest x-ray is unremarkable. Supportive treatment care discussed at bedside. Case discussed with Dr. Castano Undiagnosed new problem with uncertain prognosis? @ -No Drug Therapy requiring intensive monitoring for toxicity (Heparin, Nitro, Insulin, Cardizem)? @ -No Were any procedures done? @ -No Diagnosis/symptom? @ -influenza B Acute, or Chronic, or Acute on Chronic? @ -acute Uncomplicated (without systemic symptoms) or Complicated (systemic symptoms)? @ -uncomplicated Side effects of treatment? @ -No Exacerbation, Progression, or Severe Exacerbation? @ -No Poses a threat to life or bodily function? How? (Chest pain, [place], [place], pneumonia, PE, COPD, DKA, ARF, appy, cholecystitis, CVA, Diverticulitis, Homicidal, Suicidal, threat to staff... and all critical care pts) @ -No - Lab Data Lab Results 03/11/25 Range/Units 06:14 Influenza Type A (PCR) Not Detected (Not Detectd) Influenza Type B (PCR) Detected A (Not Detectd) RSV (PCR) Not Detected (Not Detectd) SARS-CoV-2 (PCR) Not Detected (Not Detectd) Disposition Clinical Impression: Influenza B Disposition: HOME SELF-CARE Condition: Good Instructions (If sedation given, give patient instructions): Influenza (ED) Additional Instructions: Please return to the Emergency Department if symptoms worsen or any other concerns. Prescriptions: Ibuprofen [Motrin] 800 mg PO Q6HR #30 tab Is patient prescribed a controlled substance at d/c from ED?: No Referrals: None,Stated [Primary Care Provider] - 1-2 days Time of Disposition: 07:26
[2025-03-11] MEDS: IBUPROFEN 800 MG TAB PO STA (06:17)
[2025-03-11 07:03] LABS: Influenza A Not Detected (Not Detectd); Influenza B Detected (Not Detectd); RSV Not Detected (Not Detectd)
--- NOTE | 2025-03-11 07:18 | XR ---
EXAMINATION TYPE: XR chest 2V DATE OF EXAM: 03/11/2025 6:22 AM COMPARISON: 07/21/2020 CLINICAL INDICATION: Male, 25 years old with history of cough, fevers, , TECHNIQUE: PA and lateral views FINDINGS: The cardiomediastinal silhouette, aorta, and pulmonary vasculature are within normal limits. ACC midl naomi densities related to overlying soft tissue. Lungs and pleural spaces are clear. IMPRESSION: No infiltrate identified. [facility], Workstation: [facility], 03/11/2025 7:16 AM
[2025-03-11 07:35] VITALS: BP 108/72; PULSE 70; TEMP 98
== END 2025-03-11 07:32 | disposition home or self-care (01) ==
LOC: EC 05:54
DX: J10.1 Influenza due to other identified influenza virus with other respiratory manifestations (principal)
CPT/HCPCS: 71046; 87636; 99284